=== PATIENT | female | born 1995 | race Two or more races ===

== ENCOUNTER → 2024-05-21 | Outpatient (CLI) | payer OTHER | END | disposition home or self-care (01) | LOC: PRENATAL 11:15 | PROVIDERS: ATTEND Obstetrics & Gynecology Maternal & Fetal Medicine | DX: O36.80X0 Pregnancy with inconclusive fetal viability, not applicable or unspecified (principal); Z36.82 Encounter for antenatal screening for nuchal translucency; Z14.8 Genetic carrier of other disease; Z3A.12 12 weeks gestation of pregnancy ==

== ENCOUNTER 2024-07-15 14:32 | Outpatient (CLI) | payer OTHER | END 2024-07-15 14:49 | disposition home or self-care (01) | LOC: PRENATAL 14:32 | PROVIDERS: ATTEND Obstetrics & Gynecology Maternal & Fetal Medicine | DX: O35.3XX0 Maternal care for (suspected) damage to fetus from viral disease in mother, not applicable or unspecified (principal); O44.00 Complete placenta previa NOS or without hemorrhage, unspecified trimester; Z3A.20 20 weeks gestation of pregnancy ==

== ENCOUNTER 2024-07-30 09:21 | Outpatient (CLI) | payer OTHER | END 2024-07-30 09:23 | disposition home or self-care (01) | LOC: PRENATAL 09:21 | PROVIDERS: ATTEND Obstetrics & Gynecology Maternal & Fetal Medicine | DX: O26.879 Cervical shortening, unspecified trimester (principal); Z3A.22 22 weeks gestation of pregnancy ==

== ENCOUNTER 2024-10-23 08:50 | Outpatient (CLI) | payer OTHER | END 2024-10-23 08:52 | disposition home or self-care (01) | LOC: PRENATAL 08:50 | PROVIDERS: ATTEND Obstetrics & Gynecology Maternal & Fetal Medicine | DX: O36.80X0 Pregnancy with inconclusive fetal viability, not applicable or unspecified (principal); O26.859 Spotting complicating pregnancy, unspecified trimester; O34.30 Maternal care for cervical incompetence, unspecified trimester; Z3A.01 Less than 8 weeks gestation of pregnancy ==

== ENCOUNTER 2024-11-13 08:59 | Outpatient (CLI) | payer OTHER | END 2024-11-13 09:02 | disposition home or self-care (01) | LOC: PRENATAL 08:59 | PROVIDERS: ATTEND Obstetrics & Gynecology Maternal & Fetal Medicine | DX: O36.80X0 Pregnancy with inconclusive fetal viability, not applicable or unspecified (principal); O34.30 Maternal care for cervical incompetence, unspecified trimester; Z3A.08 8 weeks gestation of pregnancy ==

== ENCOUNTER 2024-12-08 08:59 | Outpatient (CLI) | payer OTHER | END 2024-12-08 09:00 | disposition home or self-care (01) | LOC: PRENATAL 08:59 | PROVIDERS: ATTEND Obstetrics & Gynecology Maternal & Fetal Medicine | DX: O36.80X0 Pregnancy with inconclusive fetal viability, not applicable or unspecified (principal); O34.30 Maternal care for cervical incompetence, unspecified trimester; Z36.82 Encounter for antenatal screening for nuchal translucency; Z3A.12 12 weeks gestation of pregnancy ==

== ENCOUNTER 2024-12-23 08:11 | Day surgery (SDC) | payer OTHER ==
[~2024-12-23] VITALS: Ht 172.7 cm; Wt 89.4 kg
[2024-12-23 08:45] VITALS: BP 117/77
[2024-12-23 09:30] LABS: HEMOGLOBIN 13.6 g/dL (12.0-15.00); MEAN CELL VOLUME 88.7 fL (80.00-100.00); MEAN CORPUSCULAR HEMOGLOBIN 30.3 pg (27.00-32.0); MEAN CORPUSCULAR HGB CONC 34.1 g/dl (32.0-36.0); PLATELET COUNT 279 K/uL (150-450); RED BLOOD COUNT 4.51 M/uL (4.00-6.00); RED CELL DISTRIBUTION WIDTH 13.9 % (11.5-14.5)
[2024-12-23 09:56] LABS: INR 0.96; PARTIAL THROMBOPLASTIN TIME 27.2 SECONDS (22.0-34.0); PROTHROMBIN TIME 10.5 SECONDS (9.0-11.5)
[2024-12-23] MEDS ORDERED: PRENATAL TABLE1 EAC1 PO (10:04)
[2024-12-23] MEDS ORDERED: RINGERS SOLUTION,LACTATED 1,000 ML IV SCH (10:15)
[2024-12-23] MEDS ORDERED: METRONIDAZOLE/SODIUM CHLORIDE 500 MG/100 ML PIGGYBACK IV NR (10:15)
[2024-12-23 11:45] VITALS: BP 97/65
[2024-12-23 15:40] VITALS: BP 101/69
[2024-12-23] MEDS ORDERED: POVIDONE-IODINE 118 ML BOTT TOP SCH (17:15)
== END 2024-12-23 23:00 | disposition home or self-care (01) ==
LOC: CIR.AMB 08:11 → LDR 08:11 → EDSTATUS 16:45 → O/R 17:01 → LDR 17:01 → O/R 23:00 → CIR.AMB 23:00
PROVIDERS: ATTEND Obstetrics & Gynecology Maternal & Fetal Medicine
DX: O34.32 Maternal care for cervical incompetence, second trimester (principal); Z3A.14 14 weeks gestation of pregnancy

== ENCOUNTER 2025-01-07 11:29 | Outpatient (CLI) | payer OTHER ==
[~2025-01-07 11:29] MED LIST: PRENATAL TABLE1 EAC1 PO
== END 2025-01-07 11:30 | disposition home or self-care (01) ==
LOC: PRENATAL 11:29
PROVIDERS: ATTEND Obstetrics & Gynecology Maternal & Fetal Medicine
DX: O26.849 Uterine size-date discrepancy, unspecified trimester (principal); O34.30 Maternal care for cervical incompetence, unspecified trimester; Z3A.16 16 weeks gestation of pregnancy

== ENCOUNTER 2025-02-03 06:56 | Outpatient (CLI) | payer OTHER | END 2025-02-03 07:02 | disposition home or self-care (01) | LOC: PRENATAL 06:56 | PROVIDERS: ATTEND Obstetrics & Gynecology Maternal & Fetal Medicine | DX: O35.00X0 Maternal care for (suspected) central nervous system malformation or damage in fetus, unspecified, not applicable or unspecified (principal); O35.3XX0 Maternal care for (suspected) damage to fetus from viral disease in mother, not applicable or unspecified; O44.00 Complete placenta previa NOS or without hemorrhage, unspecified trimester; O34.30 Maternal care for cervical incompetence, unspecified trimester; Z3A.20 20 weeks gestation of pregnancy ==

== ENCOUNTER 2025-03-03 15:16 | Outpatient (CLI) | payer OTHER | END 2025-03-03 15:17 | disposition home or self-care (01) | LOC: PRENATAL 15:16 | PROVIDERS: ATTEND Obstetrics & Gynecology Maternal & Fetal Medicine | DX: O26.849 Uterine size-date discrepancy, unspecified trimester (principal); O34.30 Maternal care for cervical incompetence, unspecified trimester; Z3A.24 24 weeks gestation of pregnancy ==

== ENCOUNTER → 2025-04-01 15:10 | Outpatient (CLI) | payer OTHER | END | disposition home or self-care (01) | LOC: PRENATAL 15:10 | PROVIDERS: ATTEND Obstetrics & Gynecology Maternal & Fetal Medicine | DX: O26.849 Uterine size-date discrepancy, unspecified trimester (principal); O34.30 Maternal care for cervical incompetence, unspecified trimester ==

== ENCOUNTER → 2025-05-11 08:45 | Outpatient (CLI) | payer OTHER | END | disposition home or self-care (01) | LOC: PRENATAL 08:45 | DX: O26.849 Uterine size-date discrepancy, unspecified trimester (principal); O36.8199 Decreased fetal movements, unspecified trimester, other fetus; O34.30 Maternal care for cervical incompetence, unspecified trimester; O32.9XX0 Maternal care for malpresentation of fetus, unspecified, not applicable or unspecified; Z3A.32 32 weeks gestation of pregnancy ==